=== PATIENT | female | born 1955 | race Caucasian/White ===

== ENCOUNTER 2019-05-22 08:35 | Emergency (ER) | payer OTHER, BC | END 2019-05-22 09:28 | disposition home or self-care (01) | LOC: ER 08:35 ==

== ENCOUNTER → 2021-01-11 | Outpatient (CLI) | payer OTHER ==
[~2021-01-11] VITALS: Ht 167 cm; Wt 105.0 kg
[~2021-01-11] MED LIST: ASPI81TA55 PO; CATHETER FLUSH 10 ML SYR IV PRN; CYCL5TAB PO; NITR0.4T39 SL; REGADENOSON 0.4 MG/5 ML SYR (LEXISCAN) IV ONE; SULF1TAB35 PO
[2021-01-11 13:00] VITALS: BP 163/84
--- NOTE | 2021-01-11 15:32 | Cardiology Stress Test Report ---
Stress Test Report Date of Procedure/Referring: Date of Procedure: January 11, 2021 Autumn Martin Admitting Physician Aleena Devi MD Indications: HTN Baseline Heart Rate: 75 Baseline Blood Pressure: Blood Pressure Systolic: 163 Blood Pressure Diastolic: 84 Baseline Vitals Vital Signs Date Time Temp Pulse Resp B/P (MAP) Pulse Ox O2 Delivery O2 Flow Rate FiO2 01/11/21 13:00 75 163/84 (110) 98 Baseline EKG: Baseline EKG: NSR Summary After explaining the procedure to the patient, she signed a consent and then brought to the stress nuclear laboratory. Patient received 0.4 mg Lexiscan for stress test, ECG, heart rate and blood pressure were monitored continuously. Resting and stress dose of radio tracer were injected, imaging was acquired and reviewed in short axis, horizontal long axis and vertical long axis views. TID: 1.15 SSS: 4 SDS: 2 EF: 74 1. Patient tolerated Lexiscan well 2. Breast attenuation with typical female pattern, no significant ischemia or infarction on SPECT images 3. Normal left ventricular size, EF 74% RENETTA CASTLE MD January 11, 2021 15:32
== END ==
LOC: CARD 11:30
PROVIDERS: ATTEND Physician Assistant
DX: I11.9 Hypertensive heart disease without heart failure (principal)
CPT/HCPCS: 78452; 93017; 93306

== ENCOUNTER 2021-08-09 06:50 | Day surgery (SDC) | payer OTHER ==
[2021-08-09] VITALS (9 sets, daily range): BP systolic 123–145; BP diastolic 75–88
[~2021-08-09] VITALS: Ht 168.9 cm; Wt 103.9 kg
[~2021-08-09 06:50] MED LIST changes: -CATHETER FLUSH 10 ML SYR IV PRN; -REGADENOSON 0.4 MG/5 ML SYR (LEXISCAN) IV ONE; -SULF1TAB35 PO; +SULF1TAB38 PO
[2021-08-09] MEDS ORDERED: LIDOCAINE 1% INJ 20 ML 20 ML VIAL ONE (07:08)
[2021-08-09] MEDS ORDERED: NS IV 1000 ML 1,000 ML ONE (07:08)
[2021-08-09] MEDS ORDERED: HEParin (CATH LAB) 2,000 ML IV ONE (07:09)
[2021-08-09] MEDS ORDERED: NS IV 1000 ML 1,000 ML IV SCH ×2 (07:15→10:00)
--- NOTE | 2021-08-09 07:40 | Diagnostic Imaging Report ---
EXAMINATION: Chest radiograph, portable AP view. DATE: 08/09/2021 7:34 AM INDICATION: 66-year-old female, chest pain. COMPARISON: April 11, 2015. FINDINGS: Heart size and mediastinal contours are unchanged. There is no identified pneumothorax. There are subtle opacities in the left lung base. The right lung appears clear. IMPRESSION: 1. Subtle opacities in left lung base which may relate to soft tissue overlap, atelectasis, small effusion, and/or infiltrate. Dictated by: Dictated on workstation # [id number]
[2021-08-09 07:41] LABS: HEMATOCRIT 49 % (35-52); HEMOGLOBIN 16.1 g/dL (11.5-16.0); MEAN CORPUSCULAR HEMOGLOBIN 31 pg (25-34); MEAN CORPUSCULAR HGB CONC 33 g/dL (32-36); MEAN CORPUSCULAR VOLUME 95 fL (80-99); MEAN PLATELET VOLUME 9.2 fL (9.0-12.2); PLATELET COUNT 273 10^3/uL (130-400); WHITE BLOOD COUNT 9.3 10^3/uL (4.3-11.0)
[2021-08-09 08:00] LABS: PROTHROMBIN TIME PATIENT 13.5 SEC (12.2-14.7)
[2021-08-09 08:08] LABS: ALBUMIN 3.8 GM/DL (3.2-4.5); BILIRUBIN,TOTAL 0.4 MG/DL (0.1-1.0); CALCIUM 9.1 MG/DL (8.5-10.1); CREATININE SERUM 0.86 MG/DL (0.60-1.30); POTASSIUM 4.5 MMOL/L (3.6-5.0)
[2021-08-09] MEDS ORDERED: NITR0.4T39 SL (08:30)
[2021-08-09] MEDS ORDERED: ASPI-1238 PO (08:30)
[2021-08-09] MEDS ORDERED: GUAI400T86 PO (08:30)
[2021-08-09] MEDS ORDERED: RT-ALBUINH INH (08:30)
[2021-08-09] MEDS ORDERED: NAPR-1033 PO (08:30)
[2021-08-09] MEDS ORDERED: DIPH25TA31 PO (08:30)
[2021-08-09] MEDS ORDERED: FLUC150T PO (08:30)
[2021-08-09] MEDS ORDERED: VERAPAMIL 5 MG/2 ML (CALAN) VIAL IV ONE (09:06)
[2021-08-09] MEDS ORDERED: fentaNYL INJ 100 MCG/2 ML AMP ONE (09:06)
[2021-08-09] MEDS ORDERED: HEParin 1000 UNIT/ML (10ML VIAL) FOR BOLUS ONE (09:07)
[2021-08-09] MEDS ORDERED: MIDAZOLAM 5 MG/5 ML (VERSED) VIAL ONE (09:07)
[2021-08-09] MEDS ORDERED: NITRO DRIP 25000 MCG/D5W 250 ML IV ONE (09:07)
--- NOTE | 2021-08-09 09:10 | Conscious Sedation/ASA ---
Conscious Sedation Pre-Proced Time 09:10 ASA Score 3 For ASA 3 and 4: Consider anesthesia and medical clearance. Also, for patients with a history of failed moderate sedation consider anesthesia. Airway Lungs Heart ASA score ASA 1: a normal healthy patient ASA 2: a patient with a mild systemic disease (mid diabetes, controlled hypertension, obesity x ASA 3: a patient with a severe systemic disease that limits activity (angina, COPD, prior Myocardial infarction) ASA 4: a patient with an incapacitating disease that is a constant threat to life (CHF, renal failure) ASA 5: a moribund patient not expected to survive 24 hrs. (ruptured aneurysm) ASA 6: a declared brain- patient whose organs are being harvested. For emergent operations, add the letter E after the classification Mallampati Classification Grade 3 Sedation Plan Analgesia, Amnesia, Plan communicated to team members, Discussed options with patient/fam, Discussed risks with patient/fam The patient is an appropriate candidate to undergo the planned procedure, sedation, and anesthesia. The patient immediately re-assessed prior to indication. RENETTA CASTLE MD Aug 09, 2021 09:10
--- NOTE | 2021-08-09 09:50 | Discharge Inst-Post CATH ---
Discharge Inst-CATH/EP Problems Reviewed?: Yes Post Cardiac Cath/EP D/C Inst Follow Up/Plan Appointment with Dr. Dewitt's office in 4 weeks <b>CARDIAC CATH/EP PROCEDURE DISCHARGE INSTRUCTIONS</b> ACTIVITY * Go Home directly and rest. * Limit activity of the leg (or wrist if it was used) for 7 days including aerobics, swimming, jogging, bicycling, etc. * Restrict stair-climbing for 7 days if possible, if not, climb up with your non-cath leg, then bring together on the same step. * Avoid lifting, pushing, pulling or excessive movement of the affected extremity for 7 days. * Customary sexual activity may be resumed after 2 days-use caution not to use a position that strains or causes pain to the affected extremity. * No driving for 24 hours. * NO SMOKING. * Avoid straining for bowel movements for 7 days. * Gentle walking on level ground is allowed. * Returning to work will depend on the type of procedure and the results. Your doctor will discuss this with you. CALL YOUR DOCTOR FOR ANY OF THE FOLLOWING: *If bleeding from the puncture site occurs- Apply gentle pressure to site with clean cloth and call your doctor or EMS. * If a knot or lump forms under the skin, increases in size, or causes pain. * If bruising appears to be worsening or moving further down your leg instead of disappearing. * Temperature above 101 F. CARE OF YOUR GROIN INCISION; * Bruising or purple discoloration of the skin near the puncture site is common. * You may shower only, no bathtub bathing for 5 days. Be careful to avoid slipping as your leg may feel stiff. * If a closure device was used on your femoral artery, please see the attached guide regarding care of the device and your leg. * Leave dressing on FOR 24 hours. CARE OF YOUR WRIST INCISION; * Bruising or purple discoloration of the skin near the puncture site is common. * You may shower. * DO NOT submerge wrist. * Leave dressing on FOR 24 hours. RENETTA DEWITT MD Aug 09, 2021 09:50
--- NOTE | 2021-08-09 09:53 | Cardiac Cath Report ---
Cardiac Cath Report Physician (s)/Adjustment Clerk (s) Physician RENETTA CASTLE MD Pre-Procedure Diagnosis Pre-Procedure Diagnosis: Coronary artery disease Post-Procedure Note Procedure Start Date: Aug 09, 2021 Name of Procedure: Left heart catheterization Findings/Procedure Note PROCEDURE NOTE: 66-year-old lady with history of hypertension, hyperlipidemia, had borderline stress test, has been having accelerating angina, scheduled for cardiac catheterization possible PTCA. After explaining the procedure to the patient, all pros and cons were explained, all questions were answered. The patient signed the consent and then she was placed on the cardiac catheterization laboratory. Groin was prepped SL fashion local anesthesia was used. Sheath placed in the right radial artery, Whick catheter was advanced to the left ventricular cavity, pressure was measured, pullback LV to aorta, engaged the right and left coronary system and angiogram was done. At the end of the procedure the sheath was removed. Vascular band deployed FINDINGS: Hemodynamics LV 140/23, end-diastolic pressure of 23 Aorta 118/76 mean of 91 ANATOMY: Left Main is free of obstructive disease Left Anterior Descending has moderate stenosis at the midportion up to 50%, mild to moderate disease in the diagonal artery, nonobstructive disease Left Circumflex has mild disease nonobstructive disease Right Coronary Artery is dominant artery with mild disease nonobstructive disease LV Gram was not done, pressure was measured CONCLUSION: 1. Moderate stenosis in the mid LAD, mild disease in the mid diagonal artery and right coronary artery nonobstructive disease 2. Mildly elevated left ventricular end-diastolic pressure DISCUSSION AND RECOMMENDATION: Medical therapy is recommended no intervention is warranted Anesthesia Type: Conscious Sedation Estimated blood loss (mL): 10 ml Contrast Amount: 40 ml Total Radiation Dose: 300 mGy Post-Procedure Diagnosis Post-operative diagnosis: Chest pain Coronary artery disease Hypertension Hyperlipidemia RENETTA CASTLE MD Aug 09, 2021 09:53
[2021-08-09] MEDS ORDERED: ATOR10TA PO (09:54)
== END 2021-08-09 12:10 | disposition home or self-care (01) ==
LOC: CATH 06:50 → SDC 10:11 → CATH 12:10
PROVIDERS: ATTEND Internal Medicine Cardiovascular Disease
DX: I25.10 Atherosclerotic heart disease of native coronary artery without angina pectoris (principal); I10 Essential (primary) hypertension; E78.5 Hyperlipidemia, unspecified; Z11.2 Encounter for screening for other bacterial diseases
CPT/HCPCS: 36415; 71045; 80053; 80061; 85027; 85610; 85730; 87081; 93458

== ENCOUNTER → 2022-06-14 | Outpatient (CLI) | payer MEDICARE, OTHER ==
[~2022-06-14] MED LIST changes: +ASPI-1238 PO; +ATOR10TA PO; +DIPH25TA31 PO; +FLUC150T PO; +GUAI400T86 PO; +NAPR-1033 PO; +RT-ALBUINH INH
--- NOTE | 2022-06-14 15:56 | Diagnostic Imaging Report ---
EXAMINATION: CT chest without contrast (lung screening). TECHNIQUE: Multiple contiguous axial images were obtained through the chest without the use of intravenous contrast according to lung cancer screening protocol. All CT scans use one or more of the following dose optimizing techniques: automated exposure control, MA and/or KvP adjustment based on patient size and exam type or iterative reconstruction. HISTORY: 30 pack year history of smoking. COMPARISON: 04/11/2015 FINDINGS: There is no edema or pneumonia. No pleural effusion. No pneumothorax. No suspicious nodule. Bibasilar atelectasis. There is no axillary or supraclavicular lymphadenopathy. There is no mediastinal lymphadenopathy. Heart size is normal. There are no coronary artery calcifications. No pericardial effusion. Aorta is normal in caliber. Limited views of the upper abdomen show changes of cholecystectomy. There is no suspicious osseus lesion. IMPRESSION: No suspicious pulmonary nodule. LUNG-RADS CATEGORY: 1 MODIFIER: None. Dictated by: Dictated on workstation # [id number]
== END ==
LOC: RAD 08:15
PROVIDERS: ATTEND Family Medicine
DX: Z12.2 Encounter for screening for malignant neoplasm of respiratory organs (principal); F17.210 Nicotine dependence, cigarettes, uncomplicated
CPT/HCPCS: 71271

== ENCOUNTER 2022-12-13 05:34 | Outpatient (CLI) | payer MEDICARE ==
[~2022-12-13] VITALS: Ht 168 cm; Wt 107.7 kg
[2022-12-13] MEDS ORDERED: ALBU2.5V4 INH (14:25)
== END 2022-12-13 14:40 | disposition home or self-care (01) ==
LOC: PREOP 05:34
PROVIDERS: ATTEND Specialist
DX: Z01.818 Encounter for other preprocedural examination (principal)

== ENCOUNTER 2022-12-21 09:05 | Day surgery (SDC) | payer MEDICARE ==
[~2022-12-21] VITALS: Ht 168 cm; Wt 107.7 kg
[~2022-12-21 09:05] MED LIST changes: +ALBU2.5V4 INH
[2022-12-21] MEDS ORDERED: POVIDONE (BETADINE) OPHTH SOLN 5% 30 ML OP ONE (09:30)
[2022-12-21] MEDS ORDERED: MOXIFLOXACIN OPHTH SOLN 5 MG/ML 0.3 ML SYRINGE OP ONE (09:30)
[2022-12-21] MEDS: TETRACAINE 0.5% OPHTH SOLN 4 ML BTL (SINGLE DOSE ONLY) OU PRN ×4 (09:31→09:50)
[2022-12-21 09:37] VITALS: BP 141/79
[2022-12-21] MEDS ORDERED: MIDAZOLAM 2 MG/2 ML (VERSED) VIAL ONE (09:37)
[2022-12-21] MEDS: TROPICAMIDE 1% OPH SOLN (MYDRIACYL) 15 ML BTL OP SCH ×3 (09:40→09:51)
[2022-12-21] MEDS: PHENYLEPHRINE 10% OPHTH (NEO-SYN) 5 ML BTL OU SCH ×3 (09:41→09:51)
--- NOTE | 2022-12-21 10:15 | Ophthalmologist Pre-Op Note ---
Pre-Operative Progress Note H&P Reviewed The H&P was reviewed, patient examined and no changes noted. Date H&P Reviewed: Dec 21, 2022 Time H&P Reviewed: 10:15 Pre-Op Dx Cataract, Right Eye EMANUEL NICOLAS MD Dec 21, 2022 10:15
[2022-12-21] MEDS: TIMOLOL 0.5% (CATARACTS) 0.3 ML BTL OU PRN ×2 (10:17→10:26)
--- NOTE | 2022-12-21 10:34 | Ophthalmology Operative Report ---
Cataract removal/placement IOL PREOPERATIVE DIAGNOSIS: Cataract Right Eye POSTOPERATIVE DIAGNOSIS: Cataract Right Eye PROCEDURE: Cataract removal and placement of posterior chamber implant, right eye SURGEON: Omar Nicolas ANESTHESIA: Topical with sedation COMPLICATIONS: None ESTIMATED BLOOD LOSS: Minimal DESCRIPTION OF PROCEDURE: After proper informed consent was obtained, the patient, a 67 female, was taken to the Operating Room and the right eye was anesthetized with tetracaine. The right eye was then prepped and draped in the usual manner. A wire lid speculum was placed. A paracentesis was made at the left hand position. Preservative free lidocaine was injected into the anterior chamber followed by viscoelastic. A clear corneal incision was made in the temporal position. A capsulorrhexis was preformed and the central nuclear and cortical material were removed. The posterior capsule was polished and Jay 17.5 AU00T0 IOL was placed into the capsular bag. The residual viscoelastic was aspirated and balanced saline solution was injected into the anterior chamber. Moxifloxacin was injected into the anterior chamber. The wound was checked and found to be water tight. The patient tolerated the procedure well without complications. OMAR NICOLAS MD Dec 21, 2022 10:34
[2022-12-21 10:44] VITALS: BP 137/78
[2022-12-21] MEDS ORDERED: acetaZOLAMIDE ER 500 MG CAP (DIAMOX SEQUELS) PO ONE (12:00)
--- NOTE | 2022-12-21 13:08 | Anesthesia-General Post-Op ---
MAC Patient Condition Mental Status/LOC: Same as Preop Cardiovascular: Satisfactory Nausea/Vomiting: Absent Respiratory: Satisfactory Pain: Controlled Complications: Absent Post Op Complications Complications None Follow Up Care/Instructions Patient Instructions None needed. Anesthesiology Discharge Order Discharge Order Patient is doing well, no complaints, stable vital signs, no apparent adverse anesthesia problems. No complications reported per nursing. EVIE DOHERTY CRNA Dec 21, 2022 13:08
== END 2022-12-21 10:50 | disposition home or self-care (01) ==
LOC: SDC 09:05
PROVIDERS: ATTEND Specialist
DX: H25.9 Unspecified age-related cataract (principal); F17.200 Nicotine dependence, unspecified, uncomplicated
CPT/HCPCS: 66984; V2632

== ENCOUNTER 2022-12-31 08:17 | Outpatient (CLI) | payer MEDICARE, OTHER | END 2023-01-01 16:37 | disposition home or self-care (01) | LOC: PREOP 08:17 | PROVIDERS: ATTEND Specialist | DX: Z01.818 Encounter for other preprocedural examination (principal) ==

== ENCOUNTER 2023-01-04 10:05 | Day surgery (SDC) | payer MEDICARE ==
[~2023-01-04] VITALS: Ht 168 cm; Wt 107.7 kg
[2023-01-04] MEDS ORDERED: MOXIFLOXACIN OPHTH SOLN 5 MG/ML 0.3 ML SYRINGE OP ONE (10:15)
[2023-01-04] MEDS ORDERED: TIMOLOL 0.5% (CATARACTS) 0.3 ML BTL OU PRN (10:15)
[2023-01-04] MEDS ORDERED: POVIDONE (BETADINE) OPHTH SOLN 5% 30 ML OP ONE (10:15)
[2023-01-04] MEDS: TETRACAINE 0.5% OPHTH SOLN 4 ML BTL (SINGLE DOSE ONLY) OU PRN ×4 (10:16→10:32)
[2023-01-04] MEDS: TROPICAMIDE 1% OPH SOLN (MYDRIACYL) 15 ML BTL OP SCH ×3 (10:24→10:32)
[2023-01-04] MEDS: PHENYLEPHRINE 10% OPHTH (NEO-SYN) 5 ML BTL OU SCH ×3 (10:25→10:32)
[2023-01-04 10:33] VITALS: BP 145/92
[2023-01-04] MEDS ORDERED: MIDAZOLAM 2 MG/2 ML (VERSED) VIAL ONE ×2 (10:45→11:08)
--- NOTE | 2023-01-04 11:05 | Ophthalmologist Pre-Op Note ---
Pre-Operative Progress Note H&P Reviewed The H&P was reviewed, patient examined and no changes noted. Date H&P Reviewed: January 04, 2023 Time H&P Reviewed: 11:05 Pre-Op Dx Cataract, Left Eye EMANUEL NICOLAS MD January 04, 2023 11:05
--- NOTE | 2023-01-04 11:28 | Ophthalmology Operative Report ---
Cataract removal/placement IOL PREOPERATIVE DIAGNOSIS: Cataract Left Eye POSTOPERATIVE DIAGNOSIS: Cataract Left Eye PROCEDURE: Cataract removal and placement of posterior chamber implant, left eye SURGEON: Omar Nicolas ANESTHESIA: Topical with sedation COMPLICATIONS: None ESTIMATED BLOOD LOSS: Minimal DESCRIPTION OF PROCEDURE: After proper informed consent was obtained, the patient, a 67 female, was taken to the Operating Room and the left eye was anesthetized with tetracaine. The left eye was then prepped and draped in the usual manner. A wire lid speculum was placed. A paracentesis was made at the left hand position. Preservative free lidocaine was injected into the anterior chamber followed by viscoelastic. A clear corneal incision was made in the temporal position. A capsulorrhexis was preformed and the central nuclear and cortical material were removed. The posterior capsule was polished and an Jay 18.0 AU00T0 was placed into the capsular bag. The residual viscoelastic was aspirated and balanced saline solution was injected into the anterior chamber. Moxifloxacin was injected into the anterior chamber. The wound was checked and found to be water tight. The patient tolerated the procedure well without complications. OMAR NICOLAS MD January 04, 2023 11:28
[2023-01-04 11:33] VITALS: BP 147/82
[2023-01-04] MEDS ORDERED: acetaZOLAMIDE ER 500 MG CAP (DIAMOX SEQUELS) PO ONE (12:00)
--- NOTE | 2023-01-04 13:10 | Anesthesia-General Post-Op ---
MAC Patient Condition Mental Status/LOC: Same as Preop Cardiovascular: Satisfactory Nausea/Vomiting: Absent Respiratory: Satisfactory Pain: Controlled Complications: Absent Post Op Complications Complications None Follow Up Care/Instructions Patient Instructions None needed. Anesthesiology Discharge Order Discharge Order Patient is doing well, no complaints, stable vital signs, no apparent adverse anesthesia problems. No complications reported per nursing. EVIE DOHERTY CRNA January 04, 2023 13:10
== END 2023-01-04 11:42 | disposition home or self-care (01) ==
LOC: SDC 10:05
PROVIDERS: ATTEND Specialist
DX: H25.9 Unspecified age-related cataract (principal); F17.200 Nicotine dependence, unspecified, uncomplicated
CPT/HCPCS: 66984; V2632

== ENCOUNTER → 2023-05-22 | Outpatient (CLI) | payer OTHER | LOC: CARD 08:45 | PROVIDERS: ATTEND Physician Assistant | DX: I10 Essential (primary) hypertension (principal) | CPT/HCPCS: 93306 ==